=== PATIENT | female | born 1980 | race Caucasian/White ===

== ENCOUNTER 2017-11-26 10:47 | Emergency (ER) | payer OTHER ==
[2017-11-26 14:35] LABS: URINE PH (Dip) POC 7.5 (5.0-8.5)
[2017-11-26 14:35] LABS: URINE BLOOD (Dip) POC 3+ (NEGATIVE); URINE GLUCOSE (Dip) POC Negative (NEGATIVE); URINE KETONES (Dip) POC 1+ (NEGATIVE); URINE LEUKOCYTE EST (Dip) POC Negative (NEGATIVE); URINE NITRITE (Dip) POC Negative (NEGATIVE); URINE TOTAL PROTEIN POC Negative (NEGATIVE)
== END 2017-11-26 15:08 | disposition home or self-care (01) ==
LOC: FTE 10:47
DX: R50.9 Fever, unspecified (principal); R05 Cough; J34.89 Other specified disorders of nose and nasal sinuses; R07.0 Pain in throat
CPT/HCPCS: 81003; 99284